=== PATIENT | male | born 1965 | race Hispanic/Latino ===

== ENCOUNTER 2022-05-28 20:19 | Emergency (ER) | payer SELFPAY | END 2022-05-28 22:51 | disposition home or self-care (01) | LOC: CSHERS 20:19 | DX: S70.01XA Contusion of right hip, initial encounter (principal); W19.XXXA Unspecified fall, initial encounter; Y92.009 Unspecified place in unspecified non-institutional (private) residence as the place of occurrence of the external cause ==

== ENCOUNTER 2024-12-09 11:04 | Outpatient (CLI) | payer MEDICAID, OTHER | END 2024-12-09 11:05 | disposition home or self-care (01) | LOC: CSHCT 11:04 | PROVIDERS: ATTEND Internal Medicine Hematology & Oncology | DX: C22.0 Liver cell carcinoma (principal); K76.9 Liver disease, unspecified; K74.60 Unspecified cirrhosis of liver; Z96.89 Presence of other specified functional implants | CPT/HCPCS: 71260; 74177 ==